=== PATIENT | female | born 1980 | race Caucasian/White ===

== ENCOUNTER 2018-06-16 14:58 | Emergency (ER) | payer OTHER ==
[~2018-06-16] VITALS: Ht 170.2 cm; Wt 104.3 kg
[~2018-06-16 14:58] MED LIST: HYZAAR 100/25 T1 TAB PO
== END 2018-06-16 20:06 | disposition home or self-care (01) ==
LOC: ER 14:58
DX: J06.9 Acute upper respiratory infection, unspecified (principal); B34.9 Viral infection, unspecified

== ENCOUNTER 2020-04-10 02:28 | Emergency (ER) | payer OTHER ==
[~2020-04-10] VITALS: Ht 172.7 cm; Wt 99.8 kg
== END 2020-04-10 06:49 | disposition home or self-care (01) ==
LOC: ER 02:28
DX: T63.621A Toxic effect of contact with other jellyfish, accidental (unintentional), initial encounter (principal); M79.632 Pain in left forearm; R51 Headache; R11.2 Nausea with vomiting, unspecified; Y92.832 Beach as the place of occurrence of the external cause

== ENCOUNTER 2021-04-04 02:11 | Emergency (ER) | payer OTHER ==
[~2021-04-04] VITALS: Ht 170.2 cm; Wt 95.3 kg
== END 2021-04-04 10:24 | disposition home or self-care (01) ==
LOC: ER 02:11 → CPU-OBS 02:56 → ER 02:56
DX: R07.89 Other chest pain (principal)
CPT/HCPCS: G0378; G0379; 93005

== ENCOUNTER 2022-12-30 18:54 | Emergency (ER) | payer OTHER ==
[~2022-12-30] VITALS: Ht 167.6 cm; Wt 99.8 kg
[2022-12-30] MEDS ORDERED: COZAAR25 MG (19:58)
[2022-12-30] MEDS ORDERED: TOPROL XL25 M1 (19:58)
[2022-12-31] MEDS ORDERED: INTEGRA PLUS C1 EACH PO (04:47)
[2022-12-31] MEDS ORDERED: KETO10TA2 PO (04:47)
== END 2022-12-31 05:03 ==
LOC: ER 18:54
DX: N93.8 Other specified abnormal uterine and vaginal bleeding (principal); N93.9 Abnormal uterine and vaginal bleeding, unspecified; D25.9 Leiomyoma of uterus, unspecified

== ENCOUNTER 2023-01-04 | Emergency (ER) | payer OTHER ==
[~2023-01-04] VITALS: Ht 152.4 cm; Wt 102.1 kg
[~2023-01-04] MED LIST changes: +COZAAR25 MG; +INTEGRA PLUS C1 EACH PO; +KETO10TA2 PO; +TOPROL XL25 M1
[2023-01-04] MEDS ORDERED: TOPROL XL25 M1 (00:10)
[2023-01-04] MEDS ORDERED: CEFADROXIL500 MG PO (02:38)
== END 2023-01-04 03:33 | disposition home or self-care (01) ==
LOC: ER
DX: D21.9 Benign neoplasm of connective and other soft tissue, unspecified (principal); N93.9 Abnormal uterine and vaginal bleeding, unspecified; R30.0 Dysuria